=== PATIENT | male | born 1960 | race Caucasian/White ===

== ENCOUNTER 2018-07-21 23:17 | Emergency (ER) | payer SELFPAY ==
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
[2018-07-22] MEDS ORDERED: IBUPROFEN PO ONE (01:25)
[2018-07-22 03:08] VITALS: BP 104/56
== END 2018-07-22 03:08 | disposition home or self-care (01) ==
LOC: ED 23:17
DX: S01.511A Laceration without foreign body of lip, initial encounter (principal); F17.200 Nicotine dependence, unspecified, uncomplicated; Y04.0XXA Assault by unarmed brawl or fight, initial encounter; Y93.89 Activity, other specified; Y92.89 Other specified places as the place of occurrence of the external cause; Y99.8 Other external cause status
CPT/HCPCS: 99282